=== PATIENT | male | born 1970 | race Two or more races ===

== ENCOUNTER 2023-01-14 13:25 | Inpatient (IN) | payer MEDICAID ==
[~2023-01-14] VITALS: Ht 180.3 cm; Wt 92.6 kg
[2023-01-14] MEDS ORDERED: HALOPERIDOL 5 MG TABLET PO PRN (21:30)
[2023-01-14 22:29] VITALS: BP 132/81; PULSE 69; RESP 18; TEMP 98.1; O2SAT 98
[2023-01-15] MEDS ORDERED: ACETAMINOPHEN 325 MG TABLET PO PRN (06:45)
[2023-01-15] MEDS ORDERED: CloNIDine HCL 0.1 MG TABLET PO PRN (06:45)
[2023-01-15] MEDS ORDERED: MAGNESIUM HYDROXIDE SUSPENSION 30 ML UDCUP PO PRN (06:45)
[2023-01-15] MEDS ORDERED: GuaiFENesin/D-METHORPHAN [SUGAR-FREE] 200-20MG/10 ML SYRUP UDCUP PO PRN (06:45)
[2023-01-15] MEDS ORDERED: DOCUSATE SODIUM 100 MG CAPSULE PO PRN (06:45)
[2023-01-15] MEDS ORDERED: PETROLATUM,WHITE 28 GM JELLY TP PRN (06:45)
[2023-01-15] MEDS ORDERED: MAG HYDROX/AL HYDROX/SIMETH ES 30 ML SUSPENSION UDCUP PO PRN (06:45)
[2023-01-15] MEDS ORDERED: ONDANSETRON HCL 4 MG TABLET PO PRN (06:45)
[2023-01-15] MEDS ORDERED: LOPERAMIDE HCL 2 MG CAPSULE PO PRN (06:45)
[2023-01-15] MEDS ORDERED: IBUPROFEN 400 MG TABLET PO PRN (06:45)
[2023-01-15] MEDS ORDERED: ALBUTEROL SULFATE HFA 90 MCG/PUFF 8 GM INHALER IH PRN (06:45)
[2023-01-15] MEDS ORDERED: NICOTINE 14 MG/24 HOUR PATCH TD PRN (06:45)
[2023-01-15 07:55] LABS: BASOPHILS % (AUTO) 0.5 % (0.0-2.0); EOSINOPHILS % (AUTO) 4.3 % (1.0-6.0); HEMATOCRIT 46.1 % (41-53); HEMOGLOBIN 15.8 g/dL (13.5-17.5); LYMPHOCYTES # (AUTO) 2.4 K/uL (1.0-4.8); LYMPHOCYTES % (AUTO) 36.9 % (22.0-44.0); MEAN CORPUSCULAR HEMOGLOBIN 30.7 pg (26.0-34.0); MEAN CORPUSCULAR HGB CONC 34.2 G/dL (31.0-37.0); MEAN CORPUSCULAR VOLUME 90 fL (80-100); MONOCYTES # (AUTO) 0.5 K/uL (0.1-1.0); MONOCYTES % (AUTO) 7.2 % (2.0-9.0); NEUTROPHILS # (AUTO) 3.3 K/uL (1.8-7.7); NEUTROPHILS % (AUTO) 51.1 % (40.0-70.0); PLATELET COUNT (AUTO) 284 K/uL (150-450); RED BLOOD CELL COUNT(AUTO) 5.14 MIL/uL (4.50-5.90); RED CELL DISTRIBUTION WIDTH 12.9 % (11.5-14.5)
[2023-01-15 08:21] LABS: HEMOGLOBIN A1C 5.2 % (3.8-5.6)
[2023-01-15 08:39] VITALS: BP 127/75; PULSE 60; RESP 18; TEMP 97.6; O2SAT 99
[2023-01-15 09:36] LABS: ALANINE AMINOTRANSFERASE 34 U/L (12-78); ALBUMIN 3.6 g/dL (3.4-5.0); ALKALINE PHOSPHATASE 97 U/L (46-116); ANION GAP 10 mmol/L (8-16); ASPARTATE AMINOTRANSFERASE 14 U/L (15-37); BILIRUBIN,TOTAL 0.3 mg/dL (0.1-1.0); CARBON DIOXIDE 25 mmol/L (22-29); CHLORIDE 105 mmol/L (98-107); CHOLESTEROL 161 mg/dL (131-200); CREATININE 0.74 mg/dL (0.60-1.30); GLOMERULAR FILTR. RATE CALC > 60 mL/min (>60); GLUCOSE,RANDOM 90 mg/dL (70-110); POTASSIUM 4.1 mmol/L (3.5-5.1); SODIUM SERUM 140 mmol/L (136-145); TOTAL PROTEIN, SERUM 7.2 g/dL (6.4-8.2); TRIGLYCERIDES 140 mg/dL (15-150)
[2023-01-15 09:49] LABS: CHOL/HDL RATIO 3.8 (4.2-7.3); HDL CHOLESTEROL 42 mg/dL (40-60); LDL CHOL (CALC.) 91 mg/dL (0-130)
[2023-01-15 12:51] LABS: FREE T4 (FREE THYROXINE) 0.74 ng/dL (0.76-1.46); THYROID STIMULATING HORMONE 2.43 uIU/mL (0.36-3.74)
[2023-01-15 20:18] VITALS: BP 123/74; PULSE 69; RESP 18; TEMP 98.2; O2SAT 99
[2023-01-15] MEDS: LORazepam 2 MG TABLET PO PRN (20:21)
[2023-01-15] MEDS: ZOLPIDEM TARTRATE 10 MG TABLET PO PRN (21:17)
[2023-01-16 08:21] VITALS: BP 124/71; PULSE 63; RESP 19; TEMP 97.8; O2SAT 98
[2023-01-16] MEDS: SERTRALINE HCL 50 MG TABLET PO SCH (09:51)
[2023-01-16 20:23] VITALS: BP 137/86; PULSE 94; RESP 18; TEMP 97.7; O2SAT 97
[2023-01-16] MEDS: LORazepam 2 MG TABLET PO PRN (22:40)
[2023-01-16] MEDS: ZOLPIDEM TARTRATE 10 MG TABLET PO PRN (22:40)
[2023-01-17 08:22] VITALS: BP 113/72; PULSE 60; RESP 17; TEMP 97.9; O2SAT 98
[2023-01-17] MEDS: SERTRALINE HCL 50 MG TABLET PO SCH (08:39)
[2023-01-17] MEDS: LORazepam 2 MG TABLET PO PRN (16:02)
[2023-01-17 20:07] VITALS: BP 123/76; PULSE 60; RESP 19; TEMP 97.9; O2SAT 98
[2023-01-18 08:03] VITALS: BP 118/68; PULSE 69; RESP 15; TEMP 97.1; O2SAT 95
[2023-01-18] MEDS: SERTRALINE HCL 50 MG TABLET PO SCH (08:40)
[2023-01-18 20:13] VITALS: BP 134/88; PULSE 67; RESP 18; TEMP 97.7; O2SAT 99
[2023-01-18] MEDS: ZOLPIDEM TARTRATE 10 MG TABLET PO PRN (20:15)
[2023-01-19 08:22] VITALS: BP 108/66; PULSE 66; RESP 16; TEMP 98.4
[2023-01-19] MEDS: SERTRALINE HCL 50 MG TABLET PO SCH (08:46)
[2023-01-19] MEDS: LORazepam 2 MG TABLET PO PRN (18:13)
[2023-01-19 20:17] VITALS: BP 121/75; PULSE 96; RESP 19; TEMP 97.8; O2SAT 99
[2023-01-20 08:14] VITALS: BP 127/74; PULSE 69; RESP 19; TEMP 98.2; O2SAT 98
[2023-01-20] MEDS: SERTRALINE HCL 50 MG TABLET PO SCH (09:06)
[2023-01-20 20:23] VITALS: BP 109/73; PULSE 70; RESP 18; TEMP 98.2; O2SAT 97
[2023-01-21] MEDS: SERTRALINE HCL 50 MG TABLET PO SCH (09:02)
[2023-01-21 09:13] VITALS: BP 111/70; PULSE 74; RESP 17; TEMP 98; O2SAT 97
[2023-01-21 20:43] VITALS: BP 113/74; PULSE 68; RESP 18; TEMP 98.2; O2SAT 98
[2023-01-22 08:29] VITALS: BP 109/61; PULSE 60; RESP 18; TEMP 98; O2SAT 97
[2023-01-22] MEDS: SERTRALINE HCL 50 MG TABLET PO SCH (08:58)
[2023-01-22] MEDS ORDERED: TraZODone HCL 50 MG TABLET PO PRN (11:15)
[2023-01-22] MEDS ORDERED: HydrOXYzine PAMOATE 50 MG CAPSULE PO PRN (11:15)
[2023-01-22] MEDS ORDERED: SERT-158 PO (18:39)
[2023-01-22 20:58] VITALS: BP 122/70; PULSE 66; RESP 18; TEMP 98.1; O2SAT 98
== END 2023-01-23 08:00 | disposition home or self-care (01) | DRG 751 ==
LOC: B2S 21:23
PROVIDERS: ADMIT Psychiatry & Neurology Child & Adolescent Psychiatry; ATTEND Psychiatry & Neurology Child & Adolescent Psychiatry
DX: F33.2 Major depressive disorder, recurrent severe without psychotic features (principal); E11.65 Type 2 diabetes mellitus with hyperglycemia; E78.5 Hyperlipidemia, unspecified; F10.10 Alcohol abuse, uncomplicated; F19.10 Other psychoactive substance abuse, uncomplicated; F41.9 Anxiety disorder, unspecified; G47.00 Insomnia, unspecified; I10 Essential (primary) hypertension; K59.00 Constipation, unspecified; Z71.41 Alcohol abuse counseling and surveillance of alcoholic; Z71.6 Tobacco abuse counseling
CPT/HCPCS: 80053; 80061; 83036; 84439; 84443; 85025